=== PATIENT | male | born 1960 | race Caucasian/White ===

== ENCOUNTER 2017-03-08 14:30 | Outpatient (CLI) | payer MEDICARE, MEDICAID ==
[~2017-03-08 14:30] MED LIST: AMLO1TAB53 PO; CLON-529 PO; CYCL-1 PO; DIAZ5TAB PO; HYDR-565 PO; IBUP-1984 PO; LOP25T PO
[2017-03-08 15:23] LABS: BASOPHILS % (AUTO) 0.2 % (0-1); EOSINOPHILS % (AUTO) 0 % (0-6); LYMPHOCYTES # (AUTO) 1.4 X10'3 (1.1-4.8); LYMPHOCYTES % (AUTO) 9.1 % (21-51); MEAN CORPUSCULAR HEMOGLOBIN 33.2 PG (27.0-31.0); MEAN CORPUSCULAR VOLUME 97.4 FL (78-98); MEAN PLATELET VOLUME 7.6 FL (7.4-10.4); MONOCYTES # (AUTO) 1.5 X10'3 (0-0.9); NEUTROPHILS # (AUTO) 12.1 X10'3 (1.8-7.7); NEUTROPHILS % (AUTO) 80.7 % (42-75); PRE OP HEMOGLOBIN 14.3 g/dL (14.0-17.9); PRE OP PLATELET COUNT 213 X10'3 (140-440); RED BLOOD COUNT 4.31 X10'6 (4.70-6.10); RED CELL DISTRIBUTION WIDTH 13.5 % (11.5-14.5)
[2017-03-08 15:40] LABS: ALBUMIN 3.5 G/DL (3.4-5.0); ALBUMIN/GLOBULIN RATIO 0.7 (1.1-1.5); ALKALINE PHOSPHATASE 84 IU/L (46-116); BLOOD UREA NITROGEN 20 MG/DL (7-18); BUN/CREATININE RATIO 14.5 (5.4-32.0); CALCIUM 8.8 MG/DL (8.5-10.1); CHLORIDE 97 MMOL/L (99-107); CREATININE 1.38 MG/DL (0.60-1.10); PRE OP ALT 30 U/L (30-65); PRE OP ANION GAP 8 (8-16); PRE OP AST 18 U/L (10-37); PRE OP BILIRUB, TOTAL 0.4 MG/DL (0.0-1.0); PRE OP GLUCOSE 117 MG/DL (70-104); PRE OP SODIUM 136 MMOL/L (135-145); TOTAL CARBON DIOXIDE 31.2 MMOL/L (24-32); TOTAL PROTEIN 8.5 G/DL (6.4-8.2); eGFR 53 ML/MIN
[2017-03-08 15:42] LABS: PRE OP POTASSIUM 2.9 MMOL/L (3.4-5.1)
[2017-03-08] MEDS ORDERED: VARD20TA31 PO (16:28)
[2017-03-08] MEDS ORDERED: MOME45CR20 TOP (16:28)
[2017-03-08] MEDS ORDERED: ALBU18HF2 INH (16:28)
== END 2017-03-08 23:59 | disposition home or self-care (01) ==
LOC: PRE-OP 14:30 → EDSTATUS 03-13 14:00
PROVIDERS: ATTEND Orthopaedic Surgery
DX: Z01.818 Encounter for other preprocedural examination (principal); M75.122 Complete rotator cuff tear or rupture of left shoulder, not specified as traumatic; M25.512 Pain in left shoulder; J45.909 Unspecified asthma, uncomplicated; I10 Essential (primary) hypertension; F17.200 Nicotine dependence, unspecified, uncomplicated; Z86.19 Personal history of other infectious and parasitic diseases; Z96.612 Presence of left artificial shoulder joint
CPT/HCPCS: 36415; 71046; 80053; 85025; 87070

== ENCOUNTER 2017-05-04 07:30 | Inpatient (IN) | payer MEDICARE, MEDICAID ==
[2017-04-25 14:26] LABS: BASOPHILS # (AUTO) 0.1 X10'3 (0-0.2); BASOPHILS % (AUTO) 0.6 % (0-1); EOSINOPHILS # (AUTO) 0.4 X10'3 (0-0.9); EOSINOPHILS % (AUTO) 4.1 % (0-6); LYMPHOCYTES # (AUTO) 3.1 X10'3 (1.1-4.8); LYMPHOCYTES % (AUTO) 31.9 % (21-51); MEAN CORPUSCULAR HEMOGLOBIN 33.7 PG (27.0-31.0); MEAN CORPUSCULAR HGB CONC 35.2 % (33.0-36.5); MEAN CORPUSCULAR VOLUME 95.7 FL (78-98); MEAN PLATELET VOLUME 7.4 FL (7.4-10.4); MONOCYTES # (AUTO) 0.8 X10'3 (0-0.9); MONOCYTES % (AUTO) 8.3 % (2-12); NEUTROPHILS # (AUTO) 5.4 X10'3 (1.8-7.7); NEUTROPHILS % (AUTO) 55.1 % (42-75); PRE OP HEMATOCRIT 41.3 % (42.0-52.0); PRE OP HEMOGLOBIN 14.6 g/dL (14.0-17.9); PRE OP PLATELET COUNT 281 X10'3 (140-440); RED BLOOD COUNT 4.32 X10'6 (4.70-6.10); RED CELL DISTRIBUTION WIDTH 13.8 % (11.5-14.5)
[2017-04-25 14:39] LABS: ALBUMIN/GLOBULIN RATIO 0.9 (1.1-1.5); ALKALINE PHOSPHATASE 80 IU/L (46-116); BLOOD UREA NITROGEN 22 MG/DL (7-18); BUN/CREATININE RATIO 20.4 (5.4-32.0); CALCIUM 9.2 MG/DL (8.5-10.1); CHLORIDE 101 MMOL/L (99-107); CREATININE 1.08 MG/DL (0.60-1.10); PRE OP ALT 17 U/L (30-65); PRE OP ANION GAP 9 (8-16); PRE OP AST 15 U/L (10-37); PRE OP BILIRUB, TOTAL 0.3 MG/DL (0.0-1.0); PRE OP GLUCOSE 112 MG/DL (70-104); PRE OP POTASSIUM 3.4 MMOL/L (3.4-5.1); PRE OP SODIUM 140 MMOL/L (135-145); TOTAL CARBON DIOXIDE 30.1 MMOL/L (24-32); TOTAL PROTEIN 8.5 G/DL (6.4-8.2); eGFR 70 ML/MIN
[2017-05-04] VITALS (17 sets, daily range): BP systolic 130–166; BP diastolic 65–115
[~2017-05-04] VITALS: Ht 180.3 cm; Wt 112.7 kg
[~2017-05-04 07:30] MED LIST changes: +ALBU18HF2 INH; +MOME45CR20 TOP; +VANCOMYCIN INJ 1000 MG in NORMAL SALINE 250ml IV.SOLN IV ONE; +VARD20TA31 PO; +cefazolin/dext.iso 2gm/50ml 50 ML IV ONE; +famotidine 20mg tablet PO ONE; +ringers solution, lacted 1,000 ML IV SCH; +tranexamic acid inj. 1,000 MG in normal saline 100ml IV soln 90 ML IV ONE
[2017-05-04] MEDS ORDERED: diazepam 5mg tablet PO ONE (12:05)
[2017-05-04] MEDS ORDERED: HYDROcodone/acetaminophen 10/325mg tab PO ONE (12:05)
[2017-05-04] MEDS ORDERED: ROPIVAcaine 0.5% (5mg/ml) 30ml vial ONE ×2 (13:31→13:54)
[2017-05-04] MEDS ORDERED: vancomycin 1,000mg inj ONE (13:31)
[2017-05-04] MEDS ORDERED: ketorolac trometh. 30mg/ml inj. ONE (13:31)
[2017-05-04] MEDS ORDERED: MIDAZolam 5mg/5ml vial ONE (13:53)
[2017-05-04] MEDS ORDERED: fentaNYL/PF 50MCG/1 ML 2ML syringe ONE (13:53)
[2017-05-04] MEDS ORDERED: propofol inj 20 ML IV ONE (14:12)
[2017-05-04] MEDS ORDERED: ringers solution, lacted 1,000 ML IV SCH (15:14)
[2017-05-04] MEDS ORDERED: meperidine/PF 50mg/ml syringe IV PRN ×3 (15:15)
[2017-05-04] MEDS ORDERED: morphine 2 MG/ML inj. syringe IV PRN ×2 (15:15)
[2017-05-04] MEDS ORDERED: ondansetron/PF 4mg/2ml inj IV PRN ×2 (15:15→16:55)
[2017-05-04] MEDS ORDERED: proCHLORperazine 10 MG/2 ml inj IV PRN (15:15)
[2017-05-04] MEDS ORDERED: HYDROcodone/acetaminophen 10/325mg tab PO PRN (16:55)
[2017-05-04] MEDS ORDERED: magnesium hydroxide 30ml (MOM) UD suspension PO PRN (16:55)
[2017-05-04] MEDS ORDERED: ibuprofen tablet 400 MG TABLET PO PRN (16:55)
[2017-05-04] MEDS ORDERED: acetaminophen 325mg tablet PO PRN (16:55)
[2017-05-04] MEDS ORDERED: oxyCODONE IR 5mg (immed. release) tablet PO PRN (16:55)
[2017-05-04] MEDS ORDERED: cyclobenzaprine 10mg tablet PO PRN (16:55)
[2017-05-04] MEDS ORDERED: bisacodyl 10mg suppository rectal RC PRN (16:55)
[2017-05-04] MEDS ORDERED: diphenhydrAMINE 25mg capsule PO PRN ×2 (16:55)
[2017-05-04] MEDS ORDERED: VARDENAFIL HCL PO PRN (16:55)
[2017-05-04] MEDS ORDERED: HYDROmorphone inj. 0.5 MG/0.5 ML DISP.SYRIN IV PRN ×2 (16:55)
[2017-05-04] MEDS ORDERED: albuterol 2.5 MG/3 ML nebule NEB PRN (17:10)
[2017-05-04] MEDS ORDERED: vancomycin/NS 1 GM ADD-VANTAGE 250 ML IV SCH ×2 (20:00→22:57)
[2017-05-04] MEDS ORDERED: tranexamic acid inj. 1,000 MG in normal saline 100ml IV soln 100 ML IV ONE (20:00)
[2017-05-04] MEDS: gabapentin 300mg capsule PO SCH (20:29)
[2017-05-04] MEDS: oxyCODONE IR 5mg (immed. release) tablet PO PRN (20:29)
[2017-05-04] MEDS: diazepam 5mg tablet PO PRN (20:30)
[2017-05-04] MEDS: cloNIDine 0.1 mg tablet PO SCH (20:31)
[2017-05-04] MEDS: acetaminophen 325mg tablet PO SCH (20:31)
[2017-05-04] MEDS: ketorolac tromethamine 15mg/ml inj. IV SCH (20:32)
[2017-05-04] MEDS ORDERED: sennosides 8.6mg tablet PO SCH (21:00)
[2017-05-04] MEDS ORDERED: metoprolol tartrate 25mg tablet PO SCH (21:00)
[2017-05-04] MEDS: potassium cl 20mEq in 1/2 NS 1,000 ML IV SCH (23:36)
[2017-05-05] MEDS: oxyCODONE IR 5mg (immed. release) tablet PO PRN ×3 (00:12→09:22)
[2017-05-05 00:38] VITALS: BP 155/98
[2017-05-05] MEDS: potassium cl 20mEq in 1/2 NS 1,000 ML IV SCH ×2 (00:51→05:42)
[2017-05-05] MEDS: cefazolin 1gm/NS 100mL 100 ML IV SCH ×2 (01:00→07:45)
[2017-05-05] MEDS: ketorolac tromethamine 15mg/ml inj. IV SCH ×2 (02:18→07:44)
[2017-05-05] MEDS: acetaminophen 325mg tablet PO SCH ×2 (02:19→07:42)
[2017-05-05 05:00] VITALS: BP 166/90
[2017-05-05 06:00] VITALS: BP_SYST 162; BP_SYST 166; BP_DIAS 100; BP_DIAS 90
[2017-05-05] MEDS: cloNIDine 0.1 mg tablet PO SCH (07:42)
[2017-05-05] MEDS: gabapentin 300mg capsule PO SCH (07:43)
[2017-05-05 07:47] LABS: ANION GAP 11 (8-16); CHLORIDE 104 MMOL/L (99-107); POTASSIUM 3.7 MMOL/L (3.5-5.1); SODIUM 139 MMOL/L (135-145); TOTAL CARBON DIOXIDE 24.2 MMOL/L (24-32)
[2017-05-05 07:51] LABS: BASOPHILS % (AUTO) 0.2 % (0-1); EOSINOPHILS # (AUTO) 0.2 X10'3 (0-0.9); EOSINOPHILS % (AUTO) 1.3 % (0-6); HEMATOCRIT 36.8 % (42.0-52.0); HEMOGLOBIN 12.9 g/dl (14.0-17.9); LYMPHOCYTES # (AUTO) 2.2 X10'3 (1.1-4.8); LYMPHOCYTES % (AUTO) 16.5 % (21-51); MEAN CORPUSCULAR HEMOGLOBIN 33.4 PG (27.0-31.0); MEAN CORPUSCULAR VOLUME 95.5 FL (78-98); MEAN PLATELET VOLUME 7.7 FL (7.4-10.4); MONOCYTES # (AUTO) 0.9 X10'3 (0-0.9); MONOCYTES % (AUTO) 6.7 % (2-12); NEUTROPHILS # (AUTO) 9.9 X10'3 (1.8-7.7); NEUTROPHILS % (AUTO) 75.3 % (42-75); PLATELET COUNT 249 X10'3 (140-440); RED BLOOD COUNT 3.85 X10'6 (4.70-6.10); RED CELL DISTRIBUTION WIDTH 14.1 % (11.5-14.5); WHITE BLOOD COUNT 13.2 X10'3 (4.5-11.0)
[2017-05-05] MEDS: diazepam 5mg tablet PO PRN (07:51)
[2017-05-05] MEDS ORDERED: non-formulary drug (Amlodipine/Valsartan/Hctz (Exforge Hct 10-320-25 Mg Tab) 1 EACH) PO SCH (08:00)
[2017-05-05] MEDS ORDERED: HYDROchlorothiazide 25mg tablet PO SCH (08:00)
[2017-05-05] MEDS ORDERED: amLODIPine 5mg tablet PO SCH (08:00)
[2017-05-05] MEDS ORDERED: aspirin 325mg tablet PO SCH (08:30)
[2017-05-05] MEDS ORDERED: ASPI-1 PO (11:14)
[2017-05-05] MEDS ORDERED: OXYC-658 PO (11:25)
[2017-05-06] MEDS ORDERED: celeCOXIB 100mg capsule PO SCH (08:00)
[2017-05-06] MEDS ORDERED: acetaminophen 325mg tablet PO PRN (16:55)
== END 2017-05-05 11:40 | disposition home or self-care (01) | DRG 483 ==
LOC: EDSTATUS 07:30 → PAS IN 10:01 → EDSTATUS 13:30 → ORTHO 4S 18:45
PROVIDERS: ADMIT Orthopaedic Surgery; ATTEND Orthopaedic Surgery
PROC: 0RPK0JZ Removal of Synthetic Substitute from Left Shoulder Joint, Open Approach (ICD-10-PCS; 2017-05-04)
PROC: 0LS40ZZ Reposition Left Upper Arm Tendon, Open Approach (ICD-10-PCS; 2017-05-04)
PROC: 3E0T3BZ Introduction of Anesthetic Agent into Peripheral Nerves and Plexi, Percutaneous Approach (ICD-10-PCS; 2017-05-04)
PROC: 0RRK00Z Replacement of Left Shoulder Joint with Reverse Ball and Socket Synthetic Substitute, Open Approach (ICD-10-PCS; principal; 2017-05-04 13:50)
DX: M75.122 Complete rotator cuff tear or rupture of left shoulder, not specified as traumatic (principal); D62 Acute posthemorrhagic anemia; F41.9 Anxiety disorder, unspecified; G89.29 Other chronic pain; I49.9 Cardiac arrhythmia, unspecified; I10 Essential (primary) hypertension; M19.012 Primary osteoarthritis, left shoulder; M65.812 Other synovitis and tenosynovitis, left shoulder; F17.200 Nicotine dependence, unspecified, uncomplicated; Z96.612 Presence of left artificial shoulder joint; Z79.899 Other long term (current) drug therapy
CPT/HCPCS: 36415; 71046; 80051; 80053; 85025; 87070; 87075; 87102; 97110; 97116; 97161; A4565; A7000; A7526; J0690; J1170; J1885; J2250; J2704; J2795; J3010; J3370; J7030; J7120

== ENCOUNTER 2017-08-24 13:20 | Emergency (ER) | payer MEDICARE, MEDICAID ==
[~2017-08-24] VITALS: Ht 180.3 cm; Wt 111.5 kg
[~2017-08-24 13:20] MED LIST changes: +ASPI-1 PO; -HYDR-565 PO; +OXYC-658 PO; -VANCOMYCIN INJ 1000 MG in NORMAL SALINE 250ml IV.SOLN IV ONE; -cefazolin/dext.iso 2gm/50ml 50 ML IV ONE; -famotidine 20mg tablet PO ONE; -ringers solution, lacted 1,000 ML IV SCH; -tranexamic acid inj. 1,000 MG in normal saline 100ml IV soln 90 ML IV ONE
[2017-08-24 13:47] LABS: BASOPHILS % (AUTO) 0.5 % (0-1); EOSINOPHILS # (AUTO) 0.3 X10'3 (0-0.9); EOSINOPHILS % (AUTO) 2.8 % (0-6); HEMATOCRIT 44.8 % (42.0-52.0); HEMOGLOBIN 15.6 g/dl (14.0-17.9); LYMPHOCYTES # (AUTO) 2.7 X10'3 (1.1-4.8); LYMPHOCYTES % (AUTO) 29.5 % (21-51); MEAN CORPUSCULAR HEMOGLOBIN 32.9 PG (27.0-31.0); MEAN CORPUSCULAR HGB CONC 34.8 % (33.0-36.5); MEAN CORPUSCULAR VOLUME 94.5 FL (78-98); MEAN PLATELET VOLUME 7.5 FL (7.4-10.4); MONOCYTES # (AUTO) 0.8 X10'3 (0-0.9); MONOCYTES % (AUTO) 8.1 % (2-12); NEUTROPHILS # (AUTO) 5.5 X10'3 (1.8-7.7); NEUTROPHILS % (AUTO) 59.1 % (42-75); PLATELET COUNT 262 X10'3 (140-440); RED BLOOD COUNT 4.74 X10'6 (4.70-6.10); WHITE BLOOD COUNT 9.3 X10'3 (4.5-11.0)
[2017-08-24 13:54] LABS: PARTIAL THROMBOPLASTIN TIME 26 SECONDS (22-32); PROTHROMBIN TIME 10.1 SECONDS (9.0-12.0)
[2017-08-24 13:59] LABS: ALANINE AMINOTRANSFERASE 26 U/L (12-78); ALBUMIN/GLOBULIN RATIO 0.9 (1.1-1.5); ALKALINE PHOSPHATASE 92 IU/L (46-116); ANION GAP 11 (8-16); ASPARTATE AMINO TRANSFERASE 19 U/L (10-37); BILIRUBIN,TOTAL 0.3 MG/DL (0.1-1.0); BLOOD UREA NITROGEN 20 MG/DL (7-18); BUN/CREATININE RATIO 19.6 (5.4-32.0); CHLORIDE 101 MMOL/L (99-107); CREATININE 1.02 MG/DL (0.60-1.10); GLUCOSE 105 MG/DL (70-104); POTASSIUM 3.2 MMOL/L (3.5-5.1); SODIUM 140 MMOL/L (135-145); TOTAL CARBON DIOXIDE 28.2 MMOL/L (24-32); TOTAL PROTEIN 8.6 G/DL (6.4-8.2); eGFR 75 ML/MIN
[2017-08-24 16:34] VITALS: BP 122/43
== END 2017-08-24 16:35 | disposition home or self-care (01) ==
LOC: ER 13:21
DX: R07.89 Other chest pain (principal); M25.512 Pain in left shoulder; I10 Essential (primary) hypertension; G89.29 Other chronic pain; F17.200 Nicotine dependence, unspecified, uncomplicated; Z79.82 Long term (current) use of aspirin; Z79.899 Other long term (current) drug therapy
CPT/HCPCS: 36415; 71045; 80053; 84484; 85025; 85610; 85730; 93005; 99285

== ENCOUNTER 2019-12-04 11:54 | Emergency (ER) | payer MEDICARE, MEDICAID ==
[~2019-12-04] VITALS: Ht 180.3 cm; Wt 113.6 kg
[~2019-12-04 11:54] MED LIST changes: +AMLO-363 PO; -AMLO1TAB53 PO; -DIAZ5TAB PO; -MOME45CR20 TOP; +MOME45CR3 TOP; -OXYC-658 PO
[2019-12-04 13:34] LABS: CLARITY,URINE CLEAR (Clear); COLOR,URINE YELLOW (Yellow); GLUCOSE, URINE NEGATIVE (Neg); KETONES,URINE NEGATIVE (Neg); LEUKOCYTE ESTERASE ,URINE NEGATIVE (Neg); NITRITES, URINE NEGATIVE (Neg); OCCULT BLOOD,URINE TRACE-INTACT (Neg); PROTEIN,URINE TRACE mg/dl (Neg); UROBILINOGEN,URINE 0.2 E.U/dL (0.2-1.0)
[2019-12-04 13:52] LABS: UA COLLECTION TYPE VOIDED
[2019-12-04 13:53] LABS: BACTERIA,URINE FEW /HPF (Neg); SQUAMOUS EPITHELIAL CELL,UR FEW /LPF (FEW)
[2019-12-04 13:54] LABS: RBC,URINE 0-2 /HPF (0-2); WBC,URINE 0-4 /HPF (0-4)
[2019-12-04 14:12] LABS: BASOPHILS # (AUTO) 0.1 X10'3 (0-0.2); BASOPHILS % (AUTO) 0.7 % (0-1); EOSINOPHILS # (AUTO) 0.3 X10'3 (0-0.9); EOSINOPHILS % (AUTO) 2.6 % (0-6); HEMATOCRIT 42.2 % (42.0-52.0); HEMOGLOBIN 14.6 g/dl (14.0-17.9); LYMPHOCYTES # (AUTO) 2.6 X10'3 (1.1-4.8); LYMPHOCYTES % (AUTO) 25.2 % (21-51); MEAN CORPUSCULAR HEMOGLOBIN 33.3 PG (27.0-31.0); MEAN CORPUSCULAR HGB CONC 34.7 g/dL (33.0-36.5); MEAN PLATELET VOLUME 7.4 FL (7.4-10.4); MONOCYTES % (AUTO) 9.7 % (2-12); NEUTROPHILS # (AUTO) 6.4 X10'3 (1.8-7.7); NEUTROPHILS % (AUTO) 61.8 % (42-75); PLATELET COUNT 280 X10'3 (140-440); RED BLOOD COUNT 4.39 X10'6 (4.70-6.10); RED CELL DISTRIBUTION WIDTH 13.4 % (11.5-14.5); WHITE BLOOD COUNT 10.4 X10'3 (4.5-11.0)
[2019-12-04] MEDS ORDERED: ketorolac trometh. 30mg/ml inj. IV ONE (15:15)
[2019-12-04] MEDS ORDERED: nicotine prolacrilex 4mg gum BC PRN (15:15)
[2019-12-04] MEDS ORDERED: nicotine 21mg patch - 24 hr TD ONE (15:15)
[2019-12-04] MEDS ORDERED: iohexol 300mg/ml 100ml inj. ONE (15:35)
[2019-12-04 15:49] VITALS: BP 191/123
[2019-12-04] MEDS ORDERED: NICOTINE POLACRILEX 4 MG LOZENGE BC ONE (15:55)
[2019-12-04] MEDS ORDERED: NICOTINE POLACRILEX 2 MG LOZENGE BC ONE (16:05)
[2019-12-04 16:19] LABS: ALANINE AMINOTRANSFERASE 33 U/L (12-78); ALBUMIN 3.9 G/DL (3.4-5.0); ALBUMIN/GLOBULIN RATIO 0.9 (1.1-1.5); ALKALINE PHOSPHATASE 77 IU/L (46-116); ANION GAP 9 (8-16); ASPARTATE AMINO TRANSFERASE 15 U/L (10-37); BILIRUBIN,TOTAL 0.3 MG/DL (0.1-1.0); BLOOD UREA NITROGEN 27 MG/DL (7-18); BUN/CREATININE RATIO 21.8 (5.4-32.0); CALCIUM 9.2 MG/DL (8.5-10.1); CHLORIDE 100 MMOL/L (99-107); CREATININE 1.24 MG/DL (0.60-1.10); GLUCOSE 104 MG/DL (70-104); POTASSIUM 3.1 MMOL/L (3.5-5.1); SODIUM 138 MMOL/L (135-145); TOTAL CARBON DIOXIDE 29.4 MMOL/L (24-32); TOTAL PROTEIN 8.1 G/DL (6.4-8.2); eGFR 59 ML/MIN
== END 2019-12-04 16:54 | disposition left against medical advice (07) ==
LOC: ER 11:55
DX: N50.811 Right testicular pain (principal); F17.200 Nicotine dependence, unspecified, uncomplicated; Z98.890 Other specified postprocedural states; Z56.0 Unemployment, unspecified; Z79.82 Long term (current) use of aspirin; Z79.899 Other long term (current) drug therapy
CPT/HCPCS: 36415; 74177; 76870; 80053; 81001; 85025; 87491; 87591; 93976; 96374; 99285; J1885; Q9967